=== PATIENT | female | born 1990 | race African-American/Black ===

== ENCOUNTER 2022-11-14 22:27 | Emergency (ER) | payer OTHER ==
[2022-11-14 22:36] VITALS: BP 121/77; PULSE 96; RESP 18; TEMP 99.2; BMI 28.7
[2022-11-15 00:54] LABS: BASO % 0.8 % (0-2.0); EOS % 1.4 % (0-4.5); HEMATOCRIT 36.6 % (32.4-45.2); HEMOGLOBIN 12.2 GM/dL (10.7-15.3); LYMPH % 30.5 % (8-40); MCH 32.2 pg (25.7-33.7); MCHC 33.2 g/dl (32.0-36.0); MEAN CELL VOLUME 96.9 fl (80-96); MEAN PLT VOLUME 7.6 fl (7.5-11.1); MONO % 11.9 % (3.8-10.2); NEUT % 55.4 % (42.8-82.8); PLATELET COUNT 351 10^3/uL (134-434); RBC 3.78 M/mm3 (3.60-5.2); RDW 13.1 % (11.6-15.6)
[2022-11-15 01:28] LABS: CALCIUM 8.9 mg/dL (8.5-10.1)
[2022-11-15 01:29] LABS: ALBUMIN 3.9 g/dl (3.4-5.0); BLOOD UREA NITROGEN 8.4 mg/dL (7-18)
[2022-11-15 01:30] LABS: COCAINE, UR NEGATIVE (NEGATIVE); METHADONE, UR NEGATIVE (NEGATIVE); OPIATES, URI NEGATIVE (NEGATIVE)
[2022-11-15 01:31] LABS: PH,URINE 5.5 (5.0-8.0); PHENCYCLIDINE,URINE NEGATIVE (NEGATIVE); URINE APPEARANCE CLEAR; URINE BARBITURATES NEGATIVE (NEGATIVE); URINE BILIRUBIN NEGATIVE (NEGATIVE); URINE COLOR YELLOW; URINE GLUCOSE (UA) NEGATIVE (NEGATIVE); URINE KETONE TRACE (NEGATIVE); URINE LEUK ESTERASE NEGATIVE (NEGATIVE); URINE NITRITE NEGATIVE (NEGATIVE); URINE PROTEIN NEGATIVE (NEGATIVE); URINE UROBILINOGEN 0.2 mg/dL (0.2-1.0)
[2022-11-15 01:32] LABS: CREATININE 0.7 mg/dL (0.55-1.3)
[2022-11-15 01:33] LABS: TOT PROT 7.5 g/dl (6.4-8.2)
[2022-11-15 01:34] LABS: BILIRUBIN,TOTAL 0.4 mg/dL (0.2-1); HCG,QUALITATIVE URINE Negative
[2022-11-15 01:36] LABS: URINE AMPHETAMINES POSITIVE (NEGATIVE); URINE BENZODIAZEPINES NEGATIVE (NEGATIVE)
== END 2022-11-15 02:30 | disposition left against medical advice (07) ==
LOC: JER 22:27
DX: F60.0 Paranoid personality disorder (principal)
CPT/HCPCS: 36415; 80053; 80307; 81003; 84439; 84443; 84703; 85025; 87086; 93005; 93010; 99284-25

== ENCOUNTER 2022-11-16 13:26 | Emergency (ER) | payer OTHER ==
[2022-11-16 13:42] VITALS: RESP 18; TEMP 99.4; BMI 28.3
[2022-11-16] MEDS ORDERED: LORazepam 2 MG TABLET PO ONE (14:56)
[2022-11-16] MEDS ORDERED: SODIUM CHLORIDE 0.9% 500 ML INFUS.BAG IV ONE (14:57)
[2022-11-16] MEDS ORDERED: LORazepam 0.5 MG TABLET ONE (15:09)
[2022-11-16 16:31] LABS: EOS % 2.4 % (0-4.5); HEMATOCRIT 36.9 % (32.4-45.2); HEMOGLOBIN 12.1 GM/dL (10.7-15.3); LYMPH % 27.8 % (8-40); MCH 32.1 pg (25.7-33.7); MCHC 32.8 g/dl (32.0-36.0); MEAN CELL VOLUME 97.9 fl (80-96); MEAN PLT VOLUME 7.6 fl (7.5-11.1); MONO % 12.5 % (3.8-10.2); NEUT % 56.3 % (42.8-82.8); PLATELET COUNT 347 10^3/uL (134-434); RBC 3.77 M/mm3 (3.60-5.2); RDW 13.3 % (11.6-15.6); WHITE BLOOD COUNT 6.2 K/mm3 (4.0-10.0)
[2022-11-16 16:48] LABS: INR 1.08 (0.83-1.09); PROTHROMBIN TIME (PATIENT) 12.4 SEC (9.7-13.0)
[2022-11-16 16:51] LABS: ACTIVATED PTT 31.5 SECONDS (25.2-36.5)
[2022-11-16 16:56] LABS: ALBUMIN 3.8 g/dl (3.4-5.0); BLOOD UREA NITROGEN 9.3 mg/dL (7-18); CALCIUM 9.1 mg/dL (8.5-10.1)
[2022-11-16 16:57] LABS: MAGNESIUM 2.4 mg/dL (1.8-2.4)
[2022-11-16 16:59] LABS: CREATININE 0.7 mg/dL (0.55-1.3)
[2022-11-16 17:01] LABS: BILIRUBIN,TOTAL 0.2 mg/dL (0.2-1); TOT PROT 7.5 g/dl (6.4-8.2)
[2022-11-16 19:46] LABS: URINE APPEARANCE CLEAR; URINE BILIRUBIN NEGATIVE (NEGATIVE); URINE COLOR YELLOW; URINE GLUCOSE (UA) NEGATIVE (NEGATIVE); URINE KETONE NEGATIVE (NEGATIVE); URINE LEUK ESTERASE NEGATIVE (NEGATIVE); URINE NITRITE NEGATIVE (NEGATIVE); URINE PROTEIN TRACE (NEGATIVE)
[2022-11-16] MEDS ORDERED: LORazepam 1 MG TABLET PO ONE (19:55)
[2022-11-16] MEDS ORDERED: LORazepam 1 MG TABLET ONE (20:00)
[2022-11-16 20:06] VITALS: BP 128/72; PULSE 84
== END 2022-11-16 20:06 | disposition home or self-care (01) ==
LOC: JER 13:26
DX: R00.0 Tachycardia, unspecified (principal); R07.89 Other chest pain; R51.9 Headache, unspecified
CPT/HCPCS: 0241U-QW; 36415; 70450-TC; 71045-TC-FY; 80053; 81003; 83735; 84443; 84703; 85025; 85379; 85610; 85730; 93005; 93010; 99285-25